=== PATIENT | female | born 1955 | race Caucasian/White ===

== ENCOUNTER 2017-12-12 05:00 | Inpatient (IN) ==
[2017-12-06 12:27] LABS: Appearance,Urine CLEAR; Bilirubin,Urine NEG (NEG); Color,Urine YELLOW; Glucose,Urine (UA) NEGATIVE (NEG); Leukocyte Esterase,Urine NEG /uL (NEG); Protein,Urine NEG (NEG); Specific Gravity,Urine 1.012 (1.000-1.035); Urine Blood NEG mg/dL (<0.03); Urobilinogen,Urine NEG (NEG)
[2017-12-06 14:01] LABS: Basophils # (Auto) 0 K/mcL (0.0-0.3); Basophils % (Auto) 0.6 % (0.0-2.0); Eosinophils # (Auto) 0.1 K/mcL (0.0-0.7); Eosinophils % (Auto) 0.8 % (0.0-7.0); Lymphocytes # (Auto) 1.7 K/mcL (1.5-4.8); Lymphocytes % (Auto) 23.2 % (15.5-49.0); Mean Cell Volume 88.2 fL (80.0-100.0); Mean Corpuscular HGB Conc 34.5 g/dL (31.0-36.0); Mean Corpuscular Hemoglobin 30.4 pg (26.0-34.0); Monocytes # (Auto) 0.5 K/mcL (0.1-0.9); Monocytes % (Auto) 7.4 % (1.0-12.0); Platelet Count 227 K/mcL (140-440); RBC 4.95 M/mcL (4.00-5.20); Red Cell Distribution Width 13.2 % (11.5-14.5)
[2017-12-06 14:09] LABS: Blood Urea Nitrogen 6 mg/dl (8-23)
[2017-12-12] MEDS ORDERED: CELECOXIB 200 MG CAPSULE PO SCH (06:00)
[2017-12-12] MEDS ORDERED: oxyCODONE 10 MG TAB.ER.12H PO SCH (06:00)
[2017-12-12] MEDS ORDERED: ceFAZolin 1 GM VIAL IV SCH (06:00)
[2017-12-12] MEDS ORDERED: PREGABALIN 75 MG CAPSULE PO SCH (06:00)
[2017-12-12] MEDS ORDERED: ePHEDrine 50 MG/ML AMPUL IV ONE (07:40)
[2017-12-12] MEDS ORDERED: LIDOCAINE HCL/PF 100 MG/5 ML SYRINGE IV ONE (07:40)
[2017-12-12] MEDS ORDERED: PROPOFOL 200 MG/20 ML VIAL IV ONE (07:40)
[2017-12-12] MEDS ORDERED: PHENYLEPHRINE 10 MG/ML VIAL IV ONE (07:40)
[2017-12-12] MEDS ORDERED: ONDANSETRON 4 MG/2 ML VIAL IV ONE (07:40)
[2017-12-12] MEDS ORDERED: TRANEXAMIC ACID 1,000 MG/10 ML VIAL IV ONE ×3 (07:40→12:15)
[2017-12-12] MEDS ORDERED: DEXAMETHASONE 10 MG/ML VIAL IV ONE (07:40)
[2017-12-12] MEDS ORDERED: LACTATED RINGERS 250 ML IV PRN (08:37)
[2017-12-12] MEDS ORDERED: PROMETHAZINE 25 MG/ML VIAL IV PRN (08:37)
[2017-12-12] MEDS ORDERED: BENZOCAINE/MENTHOL 1 LOZENGE PO PRN ×2 (08:37→09:04)
[2017-12-12] MEDS ORDERED: IPRATROPIUM/ALBUTEROL 3 ML AMPUL.NEB NEB PRN (08:37)
[2017-12-12] MEDS ORDERED: NALOXONE HCL 0.4 MG/ML VIAL IV PRN (08:37)
[2017-12-12] MEDS ORDERED: MEPERIDINE 25 MG/ML SYRINGE IV PRN (08:37)
[2017-12-12] MEDS ORDERED: ACETAMINOPHEN 1,000 MG/100 ML BOTTLE IV ONE (08:37)
[2017-12-12] MEDS ORDERED: ONDANSETRON 4 MG/2 ML VIAL IV PRN ×2 (08:37→09:04)
[2017-12-12] MEDS ORDERED: diphenhydrAMINE 50 MG/ML VIAL IV PRN (08:37)
[2017-12-12] MEDS ORDERED: FLUMAZENIL 0.1 MG/ML ML IV PRN (08:37)
[2017-12-12] MEDS ORDERED: LACTATED RINGERS 1,000 ML IV SCH (08:45)
[2017-12-12] MEDS ORDERED: HEPARIN 10,000 UNIT/ML VIAL IR ONE (08:47)
--- NOTE | 2017-12-12 09:03 | Brief Operative Note ---
Date of procedure: 12/12/17 Pre-op diagnosis: R hip degenerative joint disease Post-op diagnosis: same Procedure: Right anterior total hip arthroplasty Grafts/Implants: Yes (Depuy Actis 6 HO stem, 48 cup, neutral altrx liner, 32 delta head) Anesthesia: spinal, GLMA Findings: severely torn labrum Complications: none Surgeon: Benito Johnson Technical Systems Architect: Darek Rubio Estimated blood loss (cc): 150 Specimens Removed/Pathology: none sent Condition: stable Disposition: PACU
[2017-12-12] MEDS ORDERED: BISACODYL 10 MG SUPP.RECT PR PRN (09:04)
[2017-12-12] MEDS ORDERED: MAGNESIUM HYDROXIDE 30 ML ORAL.SUSP PO PRN (09:04)
[2017-12-12] MEDS ORDERED: FLEETS ADULT ENEMA PR PRN (09:04)
[2017-12-12] MEDS ORDERED: POLYETHYLENE GLYCOL 3350 17 GM PACKET PO PRN (09:04)
[2017-12-12] MEDS: KETOROLAC 30 MG/ML VIAL IV PRN ×2 (09:26→15:33)
[2017-12-12] MEDS: fentaNYL 100 MCG/2 ML VIAL IV PRN ×3 (09:28→09:47)
--- NOTE | 2017-12-12 09:57 | Operative Note ---
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 POSTOPERATIVE DIAGNOSIS: Right hip acetabular dysplasia with degenerative joint disease and labral tearing. PROCEDURE PERFORMED: Right total hip arthroplasty through a direct anterior approach placing a DePuy Actis size 6 high offset femoral stem, a +1, 32 mm delta ceramic head ball with a 48 [place] cup and a neutral AltrX liner, a +1, 32 mm delta ceramic head. SURGEON: Benito Johnson MD CLIENT FINANCE ANALYST: Ziyad Rubio PA-C ANESTHESIA: Spinal plus general. DRAINS: None. SPECIMENS: Femoral head and reamings, which were discarded. BLOOD LOSS: 150 mL COMPLICATIONS: None. POSTOPERATIVE CONDITION: Stable. INDICATIONS FOR SURGERY: This is a 61-year-old female who had severe right hip pain. Radiographs showed some acetabular dysplasia. I believe she had an MRI that also showed labral tear. Exam was consistent with hip joint pathology. FINDINGS AT SURGERY: She did have a very degenerative and torn labrum with significant acetabular dysplasia. Post implantation showed good component position, leg length and offset lutheran. PROCEDURE IN DETAIL: The patient was seen preoperatively. Informed consent had been obtained after discussion of risks and benefits of surgery. Risks including, but not limited to, bleeding, possibly requiring transfusion; infection, possibly requiring implant removal and prolonged IV antibiotics; injury to nerves, blood vessels or other surrounding structures; anesthetic risks; incomplete or no resolution of symptoms; leg length discrepancy; dislocation; fracture; DVT and pulmonary embolus risks; and the possibility of needing further revision surgery. She understood these risks and wished to proceed. Correct operative site was marked and then patient was taken to the operating room. LMA general was given. The right hip and groin were then carefully prepped and draped in normal sterile fashion and a time-out was performed verifying patient name, operative site, and plan. A standard anterior approach incision was made with a scalpel through skin and subcutaneous tissue. Hemostasis was obtained with Bovie cautery and then we continued with the Bovie down onto the tensor fascia. We then undermined circumferentially with blunt dissection. IrriSept was irrigated and then a ring retractor placed. Tensor fascia was incised in line with muscle fibers and then we carefully bluntly dissected medial to the muscle. Blunt cobra retractors were placed on the superior and inferior neck. Circumflex vessels were coagulated and cut. Vastus fascia was split distally. Corkscrew was placed in the femoral head after capsulectomy. We then under fluoroscopy using osteotome identified our neck cut trajectory. Oscillating tip saw was then used to make our osteotomy and then the femoral head was removed. Acetabulum was exposed. There was noted the fairly severely deteriorated and torn labrum which was excised circumferentially. She did have notable dysplasia. We removed soft tissue from the floor. We then started with the reamer, directly medializing all the way to the inner table and then increased reamer size and angle until we got rim ream with a 47 reamer. We trialed a 47 and got some press-fit, so we opened a 48 3-hole cup. We irrigated with IrriSept and after a minute we pulse lavaged. We then used the ME 1000 to impact the cup approximately 35 to 40 degrees of inclination and 25 degrees or so of anteversion. We did get good press-fit, so we went ahead and placed a center hole cover and a neutral AltrX liner was carefully aligned and impacted. We removed any anterior overhanging osteophytes and then traction was removed from the leg. We then exposed the proximal femur. Box osteotome was used to gain canal entry. An awl was used to identify the canal trajectory and then rongeur and rasp were used to lateralize. We then began sequentially broaching with the ME 1000 to a size 6. Limited calcar planning was performed and then a +1 head ball standard neck trial was placed. Hip was reduced easily without substantial tension. AP pelvis was verified and AP of the nonoperative and operative hips were taken and overlaid. Leg length was good; however, our offset actually appeared to be under offset so we redislocated, a 6 high offset stem was opened. The trial was removed and the femoral canal was irrigated with IrriSept. After a minute we pulse lavaged copiously with saline. The stem was then impacted with the ME 1000 and seated on the medial neck cut. We then opened a +1, 32 mm delta ceramic head ball. The stem was carefully cleaned and dried and the head ball briskly impacted. The hip was then reduced again without excessive tension, although better than previous. Final fluoro images were taken and saved which showed good component position. We irrigated the joint with IrriSept, after a minute pulse lavaged with saline and then a running #1 Vicryl stitches were used to run the tensor fascia. Another IrriSept irrigation was done, after a minute another pulse lavage and then fat was tacked to fascia with Vicryl and 2-0 Monocryl used for subcutaneous and savita for skin. Xeroform and a sterile dressing were applied. The patient was awakened, extubated, and transferred to recovery in stable condition. BJB:gin Job ID: [id number] Doc ID: [id number] Benito Johnson MD
[2017-12-12] MEDS: 0.9 % SODIUM CHLORIDE 1,000 ML IV SCH ×2 (10:24→18:38)
[2017-12-12] MEDS: oxyCODONE/APAP 5/325MG TABLET PO PRN ×3 (11:30→20:18)
--- NOTE | 2017-12-12 11:33 | XRay Report ---
CLINICAL INFORMATION: Post-op Total Hip COMPARISON: 08/22/2017 preoperative x-ray. FINDINGS: Right total hip prosthesis is anatomically aligned. There is only minimal degeneration of both SI and left hip joints which is stable. No osseous abnormality. Soft tissue swelling over the surgical site - as expected IMPRESSION: Negative Interpreted and Authenticated by: oLs Caldwell 12/12/17
[2017-12-12] MEDS: 0.9 % SODIUM CHLORIDE 10 ML SYRINGE IV SCH ×2 (13:01→21:50)
[2017-12-12] MEDS: ceFAZolin 1 GM VIAL IV SCH ×2 (15:35→23:56)
--- NOTE | 2017-12-12 18:54 | XRay Report ---
CLINICAL INFORMATION: Reason for Exam:RIGHT TOTAL HIP ARTHROPLASTY-ANTERIOR COMPARISON: None. FINDINGS: Digital images from the OR are submitted. Final film shows right total hip prosthesis in anatomic alignment. No osseous abnormality IMPRESSION: Right total hip prostheses in anatomic alignment. Interpreted and Authenticated by: Los Caldwell 12/12/17
[2017-12-12] MEDS: DOCUSATE SODIUM 100 MG CAPSULE PO SCH (20:19)
[2017-12-12] MEDS: ASPIRIN 325 MG ENTERIC COATED TABLET PO SCH (20:19)
[2017-12-12] MEDS ORDERED: SENNOSIDES 1 TABLET PO SCH (21:00)
[2017-12-13] MEDS: 0.9 % SODIUM CHLORIDE 1,000 ML IV SCH (01:31)
[2017-12-13] MEDS: oxyCODONE/APAP 5/325MG TABLET PO PRN ×3 (01:44→10:55)
[2017-12-13] MEDS: KETOROLAC 30 MG/ML VIAL IV PRN (03:07)
[2017-12-13] MEDS: 0.9 % SODIUM CHLORIDE 10 ML SYRINGE IV SCH (06:02)
[2017-12-13] MEDS ORDERED: PANTOPRAZOLE 40 MG TABLET PO SCH (07:30)
--- NOTE | 2017-12-13 07:36 | Discharge Summary ---
Providers - Providers Patient information: Note initiated : 12/13/17 at 7:34 am Service Date, if different from initiated Date: [] Patient: Lulu Murcia 61 y/o F admitted on 12/12/17 for Right Total Hip Arthroplasty. Chief Complaint: [] Discharge date: 12/13/17 Hospitalization Hospital course: Pt was admitted for a total hip arthroplasty. Pt underwent the procedure on the day of admission. Pt spent one night on the floor prior to discharge. Pt will f/ u at [facility] in 2 weeks. Pt will take ASA for DVT prophylaxis. Will attend out-pt PT. Discharge diagnosis: R hip OA Exam - Exam Clean and dry: Yes Weight bearing status: as tolerated Ortho Discharge - SHIRLEY - Patient Instructions Diet: Regular Diet Activity: activity as tolerated Total Hip Protocol: Follow activity instructions as provided by Physical Therapy. Dressing Care: May shower in 2 days - Follow Up Plan Disposition: Home, Self-Care Prognosis: Good Rehab Potential: Good Overall status at discharge: patient is progressing back to baseline - Orders For Discharge Prescriptions: Aspirin [Ecotrin] 325 mg PO BID #60 tab.ec HYDROcodone/APAP 10/325MG [[place] 10-325Mg] 1 - 2 tab PO Q4H PRN #90 tab PRN Reason: Pain Pending Studies Resuscitation Status Full Code Diet Regular Diet Start SunDec 12 0907 Aspirin (Ecotrin) 325 mg PO BID [facility] Last Admin: 12/12/17 20:19 Dose: 325 mg Docusate Sodium (Colace) 100 mg PO BID [facility] Last Admin: 12/12/17 20:19 Dose: 100 mg Sodium Chloride (Sodium Chloride 0.9%) 1,000 mls @ 125 mls/hr IV .Q8H [facility] Last Infusion: 12/13/17 06:03 Dose: 0 mls/hr Admin: 12/13/17 01:31 Dose: Not Given Admin: 12/12/17 18:38 Dose: 125 mls/hr Infusion: 12/12/17 18:24 Dose: 125 mls/hr Admin: 12/12/17 10:24 Dose: 125 mls/hr Ketorolac Tromethamine (Toradol) 30 mg IV Q6HP PRN PRN Reason: Pain Stop: 12/14/17 09:08 Last Admin: 12/13/17 03:07 Dose: 30 mg Admin: 12/12/17 15:33 Dose: 30 mg Admin: 12/12/17 09:26 Dose: 30 mg Morphine Sulfate (Morphine) 0 mg IV Q1HP PRN PRN Reason: PAIN LEVEL > 6 Last Admin: 12/12/17 18:39 Dose: 4 mg Admin: 12/12/17 14:19 Dose: 4 mg Admin: 12/12/17 10:34 Dose: 4 mg Oxycodone/Acetaminophen (Percocet 5-325 Mg) 0 tab PO Q4HP PRN PRN Reason: PAIN LEVEL 3-6 Last Admin: 12/13/17 06:02 Dose: 2 tab Admin: 12/13/17 01:44 Dose: 2 tab Admin: 12/12/17 20:18 Dose: 2 tab Admin: 12/12/17 15:32 Dose: 2 tab Admin: 12/12/17 11:30 Dose: 2 tab Senna (Senokot) 2 tab PO HS [facility] Last Admin: 12/12/17 20:19 Dose: 2 tab Sodium Chloride (Saline Flush) 10 ml IV Q8 [facility] Last Admin: 12/13/17 06:02 Dose: 10 ml Admin: 12/12/17 21:50 Dose: Not Given Admin: 12/12/17 13:01 Dose: Not Given Shift Summary 12/13/17 05:13 Shift Summary by Lindsey Do Patient slept off and on this shift. Medicated for pain6-7/10 with Percocet 2 tabs x2, Toradol IV x1, Morphine 4 mg x1 with moderate effect. IV on LFA saline locked. Voids to the bathroom large amounts. Ambulated from bed to door of her room 30 ft. Patient hesitant bearing wt on her right leg. Encouraged patient and given positive reinforcement for walking. Right hip dressing and blue tape CDI. Patient allergic to adhesive tape. BP elevated 130-150's mmHg SBP, 80-90's mmHg DBP. On RA 91-95% O2 sats. Initialized on 12/13/17 05:13 - END OF NOTE
[2017-12-13] MEDS: DOCUSATE SODIUM 100 MG CAPSULE PO SCH (08:09)
[2017-12-13] MEDS: ASPIRIN 325 MG ENTERIC COATED TABLET PO SCH (08:10)
[2017-12-13] MEDS ORDERED: [UNRECOGNIZED DRUG - OTHER] PO SCH (09:00)
[2017-12-13] MEDS ORDERED: FOCUS FACTOR PO SCH (09:00)
[2017-12-13] MEDS ORDERED: VITAMIN D3 1,000 UNIT TABLET PO SCH (09:00)
[2017-12-13] MEDS ORDERED: FAMOTIDINE 20 MG TABLET PO SCH (09:00)
[2017-12-13] MEDS ORDERED: DULoxetine 30 MG CAPSULE PO SCH (09:00)
== END 2017-12-13 12:25 | disposition home or self-care (01) | DRG 470 ==
LOC: MEDSUR 05:00
PROVIDERS: ADMIT Orthopaedic Surgery; ATTEND Orthopaedic Surgery

== ENCOUNTER 2018-06-05 07:30 | Inpatient (IN) ==
[2018-05-31 15:47] LABS: Basophils # (Auto) 0 K/mcL (0.0-0.3); Basophils % (Auto) 0.5 % (0.0-2.0); Eosinophils # (Auto) 0.1 K/mcL (0.0-0.7); Eosinophils % (Auto) 0.9 % (0.0-7.0); Granulocytes % (Auto) 64.1 % (38.0-78.0); Lymphocytes # (Auto) 2.5 K/mcL (1.5-4.8); Lymphocytes % (Auto) 26.6 % (15.5-49.0); Mean Cell Volume 91.3 fL (80.0-100.0); Mean Corpuscular Hemoglobin 30.1 pg (26.0-34.0); Monocytes # (Auto) 0.8 K/mcL (0.1-0.9); Monocytes % (Auto) 7.9 % (1.0-12.0); Platelet Count 249 K/mcL (140-440); RBC 4.77 M/mcL (4.00-5.20)
[2018-05-31 15:58] LABS: Appearance,Urine CLEAR; Bilirubin,Urine NEG (NEG); Color,Urine YELLOW; Glucose,Urine (UA) NEGATIVE (NEG); Leukocyte Esterase,Urine NEG /uL (NEG); Protein,Urine NEG (NEG); Specific Gravity,Urine 1.012 (1.000-1.035); Urine Blood NEG mg/dL (<0.03); Urobilinogen,Urine NEG (NEG)
[2018-05-31 16:12] LABS: Blood Urea Nitrogen 9 mg/dl (8-23)
[~2018-06-05 07:30] MED LIST: 0.9 % SODIUM CHLORIDE 9 ML, KETOROLAC 30 MG, ROPIVACAINE HCL/PF 49.5 ML, EPINEPHrine 0.... IJ SCH; CELECOXIB 200 MG CAPSULE PO SCH; PREGABALIN 75 MG CAPSULE PO SCH; ceFAZolin 1 GM VIAL IV SCH; oxyCODONE 10 MG TAB.ER.12H PO SCH
[2018-06-05] MEDS ORDERED: PHENYLEPHRINE 10 MG/ML VIAL IV ONE (12:15)
[2018-06-05] MEDS ORDERED: PROPOFOL 200 MG/20 ML VIAL IV ONE (12:15)
[2018-06-05] MEDS ORDERED: DEXAMETHASONE 10 MG/ML VIAL IV ONE (12:15)
[2018-06-05] MEDS ORDERED: LIDOCAINE HCL/PF 100 MG/5 ML SYRINGE IV ONE (12:15)
[2018-06-05] MEDS ORDERED: MIDAZOLAM 5 MG/5 ML VIAL IV ONE (12:15)
[2018-06-05] MEDS ORDERED: TRANEXAMIC ACID 1,000 MG/10 ML VIAL IV ONE ×2 (12:15→13:53)
[2018-06-05] MEDS ORDERED: ePHEDrine 50 MG/ML AMPUL IV ONE (12:15)
[2018-06-05] MEDS ORDERED: ROPIVACAINE HCL/PF 20 ML VIAL IJ ONE (12:15)
[2018-06-05] MEDS ORDERED: ONDANSETRON 4 MG/2 ML VIAL IV ONE (12:15)
[2018-06-05] MEDS ORDERED: BENZOCAINE/MENTHOL 1 LOZENGE PO PRN (13:53)
[2018-06-05] MEDS ORDERED: POLYETHYLENE GLYCOL 3350 17 GM PACKET PO PRN (13:53)
[2018-06-05] MEDS ORDERED: ONDANSETRON 4 MG/2 ML VIAL IV PRN (13:53)
[2018-06-05] MEDS ORDERED: BISACODYL 10 MG SUPP.RECT PR PRN (13:53)
[2018-06-05] MEDS ORDERED: FLEETS ADULT ENEMA PR PRN (13:53)
[2018-06-05] MEDS ORDERED: MAGNESIUM HYDROXIDE 30 ML ORAL.SUSP PO PRN (13:53)
--- NOTE | 2018-06-05 13:53 | Brief Operative Note ---
Date of procedure: 06/05/18 Pre-op diagnosis: R knee MFC AVN Post-op diagnosis: same Procedure: Right robotic assisted total knee arthroplasty Grafts/Implants: Yes ([place] Triathlon PS 2 femur, 2 tibia, 11 mm insert, 33 patella) Anesthesia: spinal, GLMA Findings: MFC AVN Complications: none Surgeon: Benito Johnson Survey Research Associate: Darek Rubio Estimated blood loss (cc): 30 Specimens Removed/Pathology: none sent Condition: stable Disposition: PACU
[2018-06-05] MEDS ORDERED: HGH TOPICAL SCH (14:00)
--- NOTE | 2018-06-05 14:37 | Operative Note ---
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 PROCEDURE PERFORMED: Right robotic-assisted total knee arthroplasty placing a [place] Triathlon posterior stabilized size 2 femoral component, size 2 tibial baseplate, an 11 mm X3 tibial insert with a 33 mm patellar button. SURGEON: Benito Johnson M.D. BREAKER BOSS: Ziyad Rubio PA-C. ANESTHESIA: Spinal plus general. DRAINS: None. SPECIMENS: Bone cuts which were discarded. BLOOD LOSS: Less than 30 mL. COMPLICATIONS: None. POSTOPERATIVE CONDITION: Stable. INDICATIONS FOR SURGERY: This is a 62-year-old female who injured her knee over 3 months ago, was initially diagnosed with a nondisplaced tibial plateau fracture. She was treated initially with nonweightbearing and eventually allowed to start weightbearing. However, we started noticing an abnormality in her medial femoral condyle. I ended up getting an MRI and showed a large area of avascular necrosis of the medial femoral condyle. FINDINGS AT SURGERY: Showed an area of AVN of the medial femoral condyle, as well as severe osteopenia. Post-procedure showed good overall limb alignment, patellar tracking, and joint stability. PROCEDURE IN DETAIL: The patient had been seen preoperatively and informed consent had been obtained after discussion of risks and benefits of surgery. Risks including, but not limited to, bleeding, possibly requiring transfusion; infection, possibly requiring implant removal and prolonged IV antibiotics; injury to nerves, blood vessels, and other surrounding structures; anesthetic risks; incomplete or no resolution of symptoms; possibility of needing further surgery; stiffness; swelling; pain; DVT and pulmonary embolus risks. She understood these risks and wished to proceed. The correct operative site was marked, and the patient was taken to the operating room after spinal anesthesia was given. LMA general was performed and then the right lower extremity was carefully prepped and draped in normal sterile fashion, and a time-out was performed verifying patient name, operative site, and plan. Esmarch was used to exsanguinate the extremity and tourniquet was inflated to 300 mmHg. Midline incision was made with a scalpel through skin and subcutaneous tissue. Irrisept was irrigated. Medial parapatellar arthrotomy made. Subperiosteal exposure was done of the anterior medial tibia. Retropatellar fat pad was excised as well as the anterior horns of the menisci. ACL was transected. We placed our femoral and tibial checkpoints. It was at this point we noted extremely soft bone. We then made two stab incisions over the femur and two over the tibia and placed bicortical pins. The arrays were then connected. We did our hip center of rotation check. Green probe was used to identify the medial and lateral malleoli, as well as double check our checkpoints. Blue probe was then used to do our mapping. Once this was completed since she really had no osteophytes, we went ahead to our ligament balancing, checking flexion-extension gaps, medial and lateral. She ended up requiring 3 degrees of varus in the tibia and then we raised the tibial cut 1 mm to give us 17 mm gaps in all four corners. We then used the robotic arm to make our bone cuts. Once this was completed, we completed our resection of the posterior horn of the menisci. Tibia was subluxed forward. A size 2 baseplate was externally rotated as bone coverage would allow. This was pinned into place and a boss reamer and keel punch used to prepare the tibia. We then placed a keeled tibial trial. The femur was elevated. We used a curved osteotome to check for any posterior osteophytes. We then placed the box cutting jig for the posterior stabilized implant. We placed this flush with the lateral articular margin. We then used the oscillating saw and chisel to cut the box. The femoral trial was then impacted. We did end up choosing to drill peg holes just to try and get rid of some more of the necrotic bone out of the medial femoral condyle. We then placed a 9 insert trial which snapped in easily. We checked our extension and it went all the way to full. We then prepared our patella. It was fairly thin to begin with, 20 mm. We did not want to leave the patellar bone too thin, so we only cut 8 mm off, leaving 12 mm left. We sized this to a 33 which was medialized maximally. Peg holes were drilled and then the patellar trial placed. Limited lateral facetectomy was performed. We then checked our patellar tracking, which was good, so we went ahead and removed trial implants. Definitive implants were opened except for the tibial insert. Cement was mixed while Irrisept was used to fill the joint space. After a couple of minutes, we pulse lavaged with saline and then a CO2 gun was used to clean and dry the cancellous bone surfaces. We then cemented the tibia. Excess cement removed. We cemented the femur and the excess cement removed, and then a 9 insert trial was placed, and the knee was taken into extension and the patellar button cemented. While cement hardened, we filled the joint Irrisept. We removed our checkpoints. We also removed our pins in the tibia and femur. We had also injected our pain cocktail into the subcutaneous and pericapsular tissues. Once cement had fully hardened, we flexed the knee up and did a final removal of any excess cement with osteotome. Since we were easily getting the patellar trial in and she went immediately to full extension, I went ahead and upsized to an 11 insert. This popped in without difficulty and seemed to significantly improve stability, so we opened an 11 insert. The trial was removed. We injected pain cocktail in the posterior capsule and then irrigated Irrisept. The definitive insert was then impacted and carefully verified to be fully seated. We then pulse lavaged with saline and the knee was placed in 45 degrees of flexion. Interrupted [id number] #2 FiberWires were used around the superior quadrant of the patella, interrupted [id number] #1 Vicryl around the inferior quadrant, running #1 Vicryl used for patellar tendon and quad tendon. Final Irrisept irrigation was done, after a minute final pulse lavage, and then 2-0 Monocryl for subcutaneous and savita for skin. Xeroform and sterile dressing were applied. Tourniquet was released. The patient was awakened, extubated, and transferred to recovery in stable condition. MILENA:tevin Job ID: [id number] Doc ID: [id number] Benito Johnson MD
--- NOTE | 2018-06-05 15:08 | XRay Report ---
CLINICAL INFORMATION: Post-op total knee. COMPARISON: None. FINDINGS: Total knee prostheses is anatomically aligned. No osseous abnormality. Periarticular gas and soft tissue thickening seen as expected IMPRESSION: Negative Interpreted and Authenticated by: Los Caldwell 06/05/18
[2018-06-05] MEDS: 0.9 % SODIUM CHLORIDE 10 ML SYRINGE IV SCH ×2 (15:16→21:25)
[2018-06-05] MEDS: 0.9 % SODIUM CHLORIDE 1,000 ML IV SCH (15:17)
[2018-06-05] MEDS: oxyCODONE/APAP 5/325MG TABLET PO PRN ×3 (15:59→20:21)
[2018-06-05] MEDS: KETOROLAC 15 MG/ML VIAL IV SCH ×2 (17:08→23:42)
[2018-06-05] MEDS: HYDROmorphone 2 MG/ML VIAL IV PRN ×2 (17:48→21:10)
[2018-06-05] MEDS: ceFAZolin 1 GM VIAL IV SCH (20:21)
[2018-06-05] MEDS: ASPIRIN 325 MG ENTERIC COATED TABLET PO SCH (20:21)
[2018-06-05] MEDS: DOCUSATE SODIUM 100 MG CAPSULE PO SCH (20:21)
[2018-06-05] MEDS ORDERED: PANTOPRAZOLE 40 MG TABLET PO SCH (21:00)
[2018-06-05] MEDS ORDERED: SENNOSIDES 1 TABLET PO SCH (21:00)
[2018-06-06] MEDS: oxyCODONE/APAP 5/325MG TABLET PO PRN ×3 (00:25→08:12)
[2018-06-06] MEDS: 0.9 % SODIUM CHLORIDE 1,000 ML IV SCH (04:21)
[2018-06-06] MEDS: 0.9 % SODIUM CHLORIDE 10 ML SYRINGE IV SCH (04:22)
[2018-06-06] MEDS: ceFAZolin 1 GM VIAL IV SCH (04:36)
[2018-06-06] MEDS: KETOROLAC 15 MG/ML VIAL IV SCH (05:38)
--- NOTE | 2018-06-06 07:52 | Discharge Summary ---
Providers - Providers Patient information: Note initiated : 06/06/18 at 7:49 am Service Date, if different from initiated Date: [] Patient: Lulu Murcia 62 y/o F admitted on 06/05/18 for Right Robotic Total Knee Arthroplasty. Chief Complaint: [] Discharge date: 06/06/18 Hospitalization Hospital course: Pt was admitted for a TKA. Pt underwent the procedure on the day of admission. Pt spent 1 night on the floor prior to discharge for IV pain meds, IV abx, and PT. Pt will f/u at [facility] in 2 weeks. Will take ASA for DVT prophylaxis and attend out-pt PT. Discharge diagnosis: R knee AVN Exam - Exam Clean and dry: Yes Weight bearing status: as tolerated Ortho Discharge - TKA - Patient Instructions Diet: Regular Diet Activity: activity as tolerated Total Knee Protocol: For Total Knee: Start ROM SANTANA with stationary bike or rocking chair. Work on gaining full extension of knee. Posterior dislocation precautions provided. Hip abductor strengthening and gait training instructions provided. Apply Cryocuff as instructed. Dressing Care: May shower in 2 days Patient Education: Total Knee Replacement (DC) Additional Instructions: Discharge Instructions: Do the exercises at home that physical therapy gave you throughout the day. Weight bearing as tolerated. Wear comfortable clothing for physical therapy. You are scheduled to start physical therapy at [facility] ([phone]) on May. Take your prescription, photo ID, insurance cards, and current medication list with you to your first physical therapy appointment. Take your prescription to [facility] any medication. You have the Aquacel Ag dressing, leave in place for 7 days then remove. If dressing becomes soiled (turns black), remove and use gauze 4x4 dressing and silvasorb ointment and change daily. Keep incision clean and dry. You may start showering on post op day #2. To avoid constipation while taking any narcotic pain medication, take an over the counter stool softener/laxative. Use your Cryocuff or ice packs as directed, on for 20 minutes at a time throughout the day. This and elevation will help with pain and swelling. Call your physician for fevers above 100.5 or pain not controlled by medication. Your prescriptions are with your discharge information. Some medications were electronically transmitted to your pharmacy of choice. Take Aspirin twice daily, for 30 days, as prescribed to prevent blood clots ( see medication list). - Follow Up Plan Follow Up Appointments: Benito Johnson MD [Physician] - 06/24/18 8:40 am Disposition: Home, Self-Care Prognosis: Good Rehab Potential: Good Overall status at discharge: patient is progressing back to baseline - Orders For Discharge Prescriptions: Aspirin [Ecotrin] 325 mg PO BID #30 tab.ec HYDROcodone/ACETAMINOPHEN [[place] 10-325 Tablet] 1 - 2 tab PO Q4-6HP PRN #90 tab PRN Reason: Pain Pending Studies Resuscitation Status Full Code Diet Regular Diet Start SunJun 05 1354 Aspirin (Ecotrin) 325 mg PO BID [facility] Last Admin: 06/05/18 20:21 Dose: 325 mg Docusate Sodium (Colace) 100 mg PO BID [facility] Last Admin: 06/05/18 20:21 Dose: 100 mg Hydromorphone HCl (Dilaudid) 0 mg IV Q2HP PRN PRN Reason: PAIN LEVEL > 6 Last Admin: 06/05/18 21:10 Dose: 1 mg Admin: 06/05/18 17:48 Dose: 0.5 mg Sodium Chloride (Sodium Chloride 0.9%) 1,000 mls @ 75 mls/hr IV .[id number] [facility] Last Infusion: 06/06/18 07:42 Dose: 0 mls/hr Admin: 06/06/18 04:21 Dose: Not Given Admin: 06/05/18 15:17 Dose: 75 mls/hr Ketorolac Tromethamine (Toradol) 15 mg IV Q6 [facility] Stop: 06/07/18 12:01 Last Admin: 06/06/18 05:38 Dose: 15 mg Admin: 06/05/18 23:42 Dose: 15 mg Admin: 06/05/18 17:08 Dose: 15 mg Oxycodone/Acetaminophen (Percocet 5-325 Mg) 0 tab PO Q4HP PRN PRN Reason: PAIN LEVEL 3-6 Last Admin: 06/06/18 04:21 Dose: 2 tab Admin: 06/06/18 00:25 Dose: 2 tab Admin: 06/05/18 20:21 Dose: 2 tab Admin: 06/05/18 16:38 Dose: 1 tab Admin: 06/05/18 15:59 Dose: 1 tab Pantoprazole Sodium (Protonix) 40 mg PO QHS [facility] Last Admin: 06/05/18 20:21 Dose: 40 mg Senna (Senokot) 2 tab PO HS [facility] Last Admin: 06/05/18 20:21 Dose: 2 tab Sodium Chloride (Saline Flush) 10 ml IV Q8 [facility] Last Admin: 06/06/18 04:22 Dose: Not Given Admin: 06/05/18 21:25 Dose: Not Given Admin: 06/05/18 15:16 Dose: Not Given Shift Summary 06/06/18 05:03 Shift Summary by Rosario Disla Pt is up to BSC with one assist voiding QS. Pt is taking scheduled Toradol Dilaudid 1mg x1 at 2110, and Percocet last dose at 0420 for pain. Pain finally below a 5 after MN. Pt has AV boots and cryo at bedside. No complaints of n/v this shift. Will update with verbal report. Initialized on 06/06/18 05:03 - END OF NOTE
[2018-06-06] MEDS: DOCUSATE SODIUM 100 MG CAPSULE PO SCH (08:12)
[2018-06-06] MEDS: ASPIRIN 325 MG ENTERIC COATED TABLET PO SCH (08:12)
[2018-06-06] MEDS ORDERED: CALCIUM W/VIT D3 500 MG TABLET PO SCH (09:00)
[2018-06-06] MEDS ORDERED: FOCUS FACTOR PO SCH (09:00)
[2018-06-06] MEDS ORDERED: FAMOTIDINE 20 MG TABLET PO SCH (09:00)
[2018-06-06] MEDS ORDERED: DULoxetine 30 MG CAPSULE PO SCH (09:00)
== END 2018-06-06 09:51 | disposition home or self-care (01) | DRG 554 ==
LOC: MEDSUR 09:28
PROVIDERS: ADMIT Orthopaedic Surgery; ATTEND Orthopaedic Surgery
CPT/HCPCS: 97161